=== PATIENT | female | born 1955 | race Caucasian/White ===

== ENCOUNTER 2019-04-21 14:17 | Inpatient (IN) | payer OTHER ==
[~2019-04-21] VITALS: Ht 167.6 cm; Wt 59.9 kg
[~2019-04-21 14:17] MED LIST: ALBU2.5V NPPB; ASPI81TA45 PO; CEFD300C37 PO; DOXY100T23 PO; FLUT1DIS3 INH; FURO40TA6 PO; LISI-170 PO; METO-93 PO; NICO-487 TD; POTA20TA14 PO; PRED10TA PO; TIOT18CA INH; TRAM50TA2 PO
[2019-04-21 15:41] LABS: BASOPHILS # (AUTO) 0.06 x10^3/uL (0-0.1); BASOPHILS % (AUTO) 1 % (0-1); EOSINOPHILS # (AUTO) 0.09 x10^3/uL (0-0.4); EOSINOPHILS % (AUTO) 1 % (1-7); LYMPHOCYTES # (AUTO) 1.52 x10^3/uL (1-3.4); LYMPHOCYTES % (AUTO) 22 % (22-44); MD NO; MEAN CORPUSCULAR HEMOGLOBIN 30.5 pg (27.0-34.8); MEAN CORPUSCULAR HGB CONC 33.1 g/dL (32.4-35.8); MEAN PLATELET VOLUME 6.6 fL (7.4-10.4); MONOCYTES % (AUTO) 10 % (2-9); NEUTROPHILS # (AUTO) 4.58 x10^3/uL (1.8-6.8); NEUTROPHILS % (AUTO) 66 % (42-75); PLATELET COUNT 396 x10^3/uL (130-400); RED BLOOD COUNT 4.47 x10^6/uL (3.82-5.3); RED CELL DISTRIBUTION WIDTH 15.7 % (9.6-15.2)
[2019-04-21 15:42] LABS: HCT (SEDRATE) 41.2 % (34.6-47.8)
[2019-04-21 15:46] LABS: ALBUMIN 3.3 g/dL (3.4-5.0); ANION GAP 10 mmol/L (5-15); CALCIUM 9.1 mg/dL (8.5-10.1); CHLORIDE 90 mmol/L (98-107)
--- NOTE | 2019-04-21 15:48 | NUR ---
from lobby to room at this time
[2019-04-21 15:55] LABS: ALANINE AMINOTRANSFERASE 20 U/L (12-78); ALKALINE PHOSPHATASE 61 U/L (45-117); BILIRUBIN,TOTAL 0.3 mg/dL (0.2-1.0); CREATININE 0.75 mg/dL (0.55-1.02); TOTAL PROTEIN 7.2 g/dL (6.4-8.2)
[2019-04-21] MEDS ORDERED: PIPERACILLIN/TAZO/PMX 3.375GM 50 ML IVPB ONE (16:30)
[2019-04-21] MEDS ORDERED: VANCOMYCIN 1,200 MG in SODIUM CHLORIDE 0.9% 250 ML IV ONE (16:30)
[2019-04-21] MEDS ORDERED: VANCOMYCIN PER PHARMACY MC ONE (16:30)
--- NOTE | 2019-04-21 17:12 | NUR ---
1605 pt to ed from home. infection in R great toe x3 weeks. no fevers/chills. LIANG ordered. ERMD at bedside for eval 1710 1st set Blood cultures drawn. plan for admit/iv abx. liang in progress. pt placed on o2 2lnc, wears o2 at night. 9/10 toe pain. call tyson in reach.
[2019-04-21] MEDS ORDERED: OXYcodone IR 5MG TABLET ONE (17:22)
[2019-04-21] MEDS ORDERED: morphine SULFATE 10 MG/ML, 1ML IVPush PRN (17:30)
[2019-04-21] MEDS ORDERED: ONDANSETRON 2MG/ML, 2ML IVPush PRN (17:30)
[2019-04-21] MEDS ORDERED: VANCOMYCIN PER PHARMACY MC PRN (17:30)
--- NOTE | 2019-04-21 17:32 | NUR ---
report to marcela rodriguez. oxy for pain. as
[2019-04-21] MEDS: OXYcodone IR 5MG TABLET PO PRN (17:39)
[2019-04-21] MEDS ORDERED: PHARMACOKINETIC MONITORING MC PRN (18:00)
[2019-04-21] MEDS ORDERED: PHARMACOKINETIC CONSULTATION MC ONE (18:00)
[2019-04-21] MEDS ORDERED: POTASSIUM CHLORIDE 40 MEQ in SODIUM CHLORIDE 0.9% 500 ML IV ONE (18:00)
[2019-04-21] MEDS: SODIUM CHLORIDE 0.9% 1,000 ML IV SCH (18:08)
[2019-04-21] MEDS: PIPERACILLIN/TAZO/PMX 3.375GM 50 ML IV SCH (18:08)
[2019-04-21] MEDS: NICOTINE 14MG/24 HR PATCH.TD24 TD SCH (18:09)
[2019-04-21 19:05] VITALS: BP 171/81
[2019-04-21] MEDS: VANCOMYCIN 1,100 MG in SODIUM CHLORIDE 0.9% 250 ML IV SCH (19:17)
[2019-04-21] MEDS ORDERED: ALBUTEROL SULFATE 2.5 MG/3 ML NPPB PRN (21:30)
[2019-04-21] MEDS ORDERED: ACETAMINOPHEN 325 MG TABLET PO PRN (22:00)
[2019-04-21] MEDS: LISINOPRIL 20 MG TABLET PO SCH (22:11)
[2019-04-22] MEDS ORDERED: OMNIPAQUE 350 MG/ML, 150 ML BOTTLE ONE (01:11)
[2019-04-22 01:22] VITALS: BP 152/86
[2019-04-22] MEDS: PIPERACILLIN/TAZO/PMX 3.375GM 50 ML IV SCH ×4 (01:54→19:50)
[2019-04-22 06:14] LABS: ANION GAP 6 mmol/L (5-15); CALCIUM 8.9 mg/dL (8.5-10.1); CHLORIDE 97 mmol/L (98-107)
[2019-04-22 06:15] LABS: CREATININE 0.46 mg/dL (0.55-1.02)
[2019-04-22 06:19] LABS: BASOPHILS # (AUTO) 0.02 x10^3/uL (0-0.1); BASOPHILS % (AUTO) 0 % (0-1); EOSINOPHILS # (AUTO) 0.08 x10^3/uL (0-0.4); EOSINOPHILS % (AUTO) 2 % (1-7); LYMPHOCYTES # (AUTO) 1.38 x10^3/uL (1-3.4); LYMPHOCYTES % (AUTO) 26 % (22-44); MD NO; MEAN CORPUSCULAR HEMOGLOBIN 30.4 pg (27.0-34.8); MEAN CORPUSCULAR HGB CONC 32.5 g/dL (32.4-35.8); MEAN CORPUSCULAR VOLUME 93.4 fL (80-100); MEAN PLATELET VOLUME 7.3 fL (7.4-10.4); MONOCYTES # (AUTO) 0.56 x10^3/uL (0.2-0.8); MONOCYTES % (AUTO) 10 % (2-9); NEUTROPHILS % (AUTO) 62 % (42-75); PLATELET COUNT 334 x10^3/uL (130-400); RED BLOOD COUNT 4.21 x10^6/uL (3.82-5.3); RED CELL DISTRIBUTION WIDTH 15.3 % (9.6-15.2)
[2019-04-22 07:42] VITALS: BP 142/85
[2019-04-22] MEDS: METOPROLOL SUCCINATE 50 MG TAB.ER.24H PO SCH (07:52)
[2019-04-22] MEDS: LISINOPRIL 20 MG TABLET PO SCH ×2 (07:52→19:51)
[2019-04-22] MEDS: VANCOMYCIN 1,100 MG in SODIUM CHLORIDE 0.9% 250 ML IV SCH (12:30)
[2019-04-22 12:53] VITALS: BP 128/66
[2019-04-22] MEDS ORDERED: LIDOCAINE 1%, 10ML ONE (15:29)
[2019-04-22] MEDS ORDERED: ATROPINE SYRINGE 0.1 MG/ML, 10ML ONE (15:44)
[2019-04-22] MEDS ORDERED: FENTANYL PF 100 MCG/2ML ONE (15:45)
[2019-04-22] MEDS ORDERED: MIDAZOLAM 1 MG/ML, 5ML ONE (15:45)
[2019-04-22] MEDS ORDERED: FLUMAZENIL 0.1 MG/1 ML, 5ML ONE (15:45)
[2019-04-22] MEDS ORDERED: PROTAMINE SULFATE 10 MG/ML, 25ML ONE (15:45)
[2019-04-22] MEDS ORDERED: NALOXONE 1 MG/ML, 2ML ONE (15:45)
[2019-04-22] MEDS ORDERED: NITROGLYCERIN 5 MG/ML, 10ML ONE (15:45)
[2019-04-22] MEDS ORDERED: HEPARIN 1,000 UNITS/ML, 10ML ONE (15:45)
[2019-04-22] MEDS ORDERED: DIPHENHYDRAMINE 50 MG/ML, 1ML ONE (17:02)
[2019-04-22 18:27] VITALS: BP 174/95
[2019-04-22] MEDS ORDERED: CLOPIDOGREL 75 MG TABLET PO ONE (19:00)
[2019-04-22] MEDS: NICOTINE 14MG/24 HR PATCH.TD24 TD SCH (19:51)
[2019-04-22] MEDS: SODIUM CHLORIDE 0.9% 1,000 ML IV SCH (19:51)
[2019-04-22] MEDS: POTASSIUM CHLORIDE 20 MEQ TAB.ER.PRT PO SCH (19:52)
[2019-04-23 00:54] VITALS: BP 117/78
[2019-04-23] MEDS: PIPERACILLIN/TAZO/PMX 3.375GM 50 ML IV SCH ×4 (01:48→20:20)
[2019-04-23] MEDS: VANCOMYCIN 1,100 MG in SODIUM CHLORIDE 0.9% 250 ML IV SCH (06:15)
[2019-04-23 07:12] VITALS: BP 155/74
[2019-04-23] MEDS: POTASSIUM CHLORIDE 20 MEQ TAB.ER.PRT PO SCH (08:12)
[2019-04-23] MEDS: CLOPIDOGREL 75 MG TABLET PO SCH (08:12)
[2019-04-23] MEDS: METOPROLOL SUCCINATE 50 MG TAB.ER.24H PO SCH (08:13)
[2019-04-23] MEDS: LISINOPRIL 20 MG TABLET PO SCH ×2 (08:13→20:20)
[2019-04-23 14:12] VITALS: BP 151/79
[2019-04-23] MEDS: SODIUM CHLORIDE 0.9% 1,000 ML IV SCH (14:27)
[2019-04-23 20:10] VITALS: BP 153/78
[2019-04-23] MEDS: NICOTINE 14MG/24 HR PATCH.TD24 TD SCH (20:20)
[2019-04-23] MEDS: DAPTOMYCIN 350 MG in SODIUM CHLORIDE 0.9% 100 ML IVPB SCH (22:03)
[2019-04-24] MEDS: PIPERACILLIN/TAZO/PMX 3.375GM 50 ML IV SCH ×2 (01:31→08:56)
[2019-04-24 02:57] VITALS: BP 152/83
[2019-04-24 05:23] LABS: BASOPHILS # (AUTO) 0.04 x10^3/uL (0-0.1); BASOPHILS % (AUTO) 1 % (0-1); EOSINOPHILS # (AUTO) 0.12 x10^3/uL (0-0.4); EOSINOPHILS % (AUTO) 2 % (1-7); LYMPHOCYTES % (AUTO) 33 % (22-44); MD NO; MEAN CORPUSCULAR HEMOGLOBIN 30.3 pg (27.0-34.8); MEAN CORPUSCULAR VOLUME 94.8 fL (80-100); MEAN PLATELET VOLUME 6.9 fL (7.4-10.4); MONOCYTES # (AUTO) 0.64 x10^3/uL (0.2-0.8); MONOCYTES % (AUTO) 10 % (2-9); NEUTROPHILS # (AUTO) 3.32 x10^3/uL (1.8-6.8); NEUTROPHILS % (AUTO) 54 % (42-75); PLATELET COUNT 285 x10^3/uL (130-400); RED BLOOD COUNT 3.76 x10^6/uL (3.82-5.3); RED CELL DISTRIBUTION WIDTH 15.6 % (9.6-15.2)
[2019-04-24 05:35] LABS: ANION GAP 3 mmol/L (5-15); CALCIUM 8.4 mg/dL (8.5-10.1); CHLORIDE 107 mmol/L (98-107); CREATININE 0.48 mg/dL (0.55-1.02)
[2019-04-24 05:38] LABS: CREATINE KINASE, TOTAL 66 U/L (26-192)
[2019-04-24] MEDS: METOPROLOL SUCCINATE 50 MG TAB.ER.24H PO SCH (08:56)
[2019-04-24] MEDS: CLOPIDOGREL 75 MG TABLET PO SCH (08:56)
[2019-04-24] MEDS: POTASSIUM CHLORIDE 20 MEQ TAB.ER.PRT PO SCH (08:56)
[2019-04-24] MEDS: LISINOPRIL 20 MG TABLET PO SCH ×2 (08:57→20:14)
[2019-04-24] MEDS ORDERED: GADOTERATE 7.5 MMOL/15 ML SYR ONE (11:15)
[2019-04-24] MEDS: LEVOFLOXACIN 750 MG TABLET PO SCH (12:17)
[2019-04-24 16:03] VITALS: BP 173/85
[2019-04-24] MEDS ORDERED: PROPOFOL 50 ML ONE (17:32)
[2019-04-24] MEDS ORDERED: FENTANYL PF 100 MCG/2ML ONE ×2 (17:55→19:00)
[2019-04-24] MEDS ORDERED: FENTANYL PF 100 MCG/2ML IV PRN (19:00)
[2019-04-24] MEDS ORDERED: EPHEDRINE 50 MG/ML, 1ML IM PRN (19:00)
[2019-04-24] MEDS ORDERED: ALBUTEROL/IPRATROPIUM 2.5MG/0.5MG, 3 ML NPPB PRN (19:00)
[2019-04-24] MEDS ORDERED: ONDANSETRON 2MG/ML, 2ML IV PRN (19:00)
[2019-04-24] MEDS ORDERED: MIDAZOLAM 1 MG/ML, 2ML IV PRN (19:00)
[2019-04-24] MEDS ORDERED: EPHEDRINE 50 MG/ML, 1ML IVPush PRN (19:00)
[2019-04-24] MEDS ORDERED: OXYcodone 5 MG/5 ML ORAL.SOL UDC PO PRN (19:00)
[2019-04-24] MEDS ORDERED: ONDANSETRON ODT 8 MG PO PRN (19:00)
[2019-04-24] MEDS ORDERED: MORPHINE SULFATE 4 MG/ML, 1ML IVPush PRN (19:00)
[2019-04-24] MEDS ORDERED: DIPHENHYDRAMINE 50 MG/ML, 1ML IVPush PRN (19:00)
[2019-04-24] MEDS ORDERED: PROMETHAZINE 25 MG/ML, 1ML IV PRN (19:00)
[2019-04-24] MEDS ORDERED: DIAZEPAM 5 MG/ML, 2ML IVPush PRN (19:00)
[2019-04-24] MEDS ORDERED: OXYcodone 5 MG/5 ML ORAL.SOL UDC ONE ×2 (19:01→19:05)
[2019-04-24] MEDS ORDERED: hydrALAzine 20 MG/ML, 1ML ONE (19:12)
[2019-04-24] MEDS ORDERED: hydrALAzine 20 MG/ML, 1ML IV PRN (19:30)
[2019-04-24 19:57] VITALS: BP 158/85
[2019-04-24] MEDS: NICOTINE 14MG/24 HR PATCH.TD24 TD SCH (20:13)
[2019-04-24] MEDS: OXYcodone IR 5MG TABLET PO PRN ×2 (20:35→22:47)
[2019-04-24] MEDS: DAPTOMYCIN 350 MG in SODIUM CHLORIDE 0.9% 100 ML IVPB SCH (22:41)
[2019-04-25 00:33] VITALS: BP 152/82
[2019-04-25] MEDS: SODIUM CHLORIDE 0.9% 1,000 ML IV SCH (02:59)
[2019-04-25 05:28] LABS: BASOPHILS # (AUTO) 0.06 x10^3/uL (0-0.1); BASOPHILS % (AUTO) 1 % (0-1); EOSINOPHILS # (AUTO) 0.11 x10^3/uL (0-0.4); EOSINOPHILS % (AUTO) 2 % (1-7); LYMPHOCYTES # (AUTO) 2.12 x10^3/uL (1-3.4); LYMPHOCYTES % (AUTO) 29 % (22-44); MD NO; MEAN CORPUSCULAR HEMOGLOBIN 30.9 pg (27.0-34.8); MEAN CORPUSCULAR HGB CONC 33.1 g/dL (32.4-35.8); MEAN CORPUSCULAR VOLUME 93.3 fL (80-100); MEAN PLATELET VOLUME 6.9 fL (7.4-10.4); MONOCYTES # (AUTO) 0.56 x10^3/uL (0.2-0.8); MONOCYTES % (AUTO) 8 % (2-9); NEUTROPHILS # (AUTO) 4.36 x10^3/uL (1.8-6.8); NEUTROPHILS % (AUTO) 61 % (42-75); PLATELET COUNT 295 x10^3/uL (130-400); RED BLOOD COUNT 3.83 x10^6/uL (3.82-5.3); RED CELL DISTRIBUTION WIDTH 15.9 % (9.6-15.2)
[2019-04-25 05:34] LABS: ANION GAP 6 mmol/L (5-15); CALCIUM 8.6 mg/dL (8.5-10.1); CHLORIDE 105 mmol/L (98-107)
[2019-04-25] MEDS: ENOXAPARIN 40 MG/0.4 ML SQ SCH (09:57)
[2019-04-25] MEDS: LISINOPRIL 20 MG TABLET PO SCH ×2 (09:57→21:49)
[2019-04-25] MEDS: METOPROLOL SUCCINATE 50 MG TAB.ER.24H PO SCH (09:57)
[2019-04-25] MEDS: POTASSIUM CHLORIDE 20 MEQ TAB.ER.PRT PO SCH (09:57)
[2019-04-25] MEDS: CLOPIDOGREL 75 MG TABLET PO SCH (09:57)
[2019-04-25 10:54] VITALS: BP 158/85
[2019-04-25] MEDS: LEVOFLOXACIN 750 MG TABLET PO SCH (12:37)
[2019-04-25] MEDS ORDERED: POLYETHYLENE GLYCOL 17 GM PACKET PO PRN (13:00)
[2019-04-25] MEDS ORDERED: BISACODYL 10 MG SUPP PR PRN (13:00)
[2019-04-25 14:12] VITALS: BP 142/76
[2019-04-25 18:52] VITALS: BP 159/83
[2019-04-25] MEDS: DOCUSATE 100 MG CAPSULE PO SCH (21:49)
[2019-04-25] MEDS: NICOTINE 14MG/24 HR PATCH.TD24 TD SCH (21:49)
[2019-04-25] MEDS: DAPTOMYCIN 350 MG in SODIUM CHLORIDE 0.9% 100 ML IVPB SCH (21:53)
[2019-04-26 03:21] VITALS: BP 147/80
[2019-04-26 07:00] VITALS: BP 155/84
[2019-04-26] MEDS: POTASSIUM CHLORIDE 20 MEQ TAB.ER.PRT PO SCH (08:40)
[2019-04-26] MEDS: METOPROLOL SUCCINATE 50 MG TAB.ER.24H PO SCH (08:40)
[2019-04-26] MEDS: DOCUSATE 100 MG CAPSULE PO SCH ×2 (08:40→20:17)
[2019-04-26] MEDS: CLOPIDOGREL 75 MG TABLET PO SCH (08:40)
[2019-04-26] MEDS: LISINOPRIL 20 MG TABLET PO SCH ×2 (08:40→20:02)
[2019-04-26] MEDS: ENOXAPARIN 40 MG/0.4 ML SQ SCH (08:41)
[2019-04-26] MEDS: AMLODIPINE 5 MG TABLET PO SCH (08:41)
[2019-04-26] MEDS: LEVOFLOXACIN 750 MG TABLET PO SCH (12:27)
[2019-04-26 13:05] VITALS: BP 145/72
[2019-04-26 19:52] VITALS: BP 149/85
[2019-04-26] MEDS: NICOTINE 14MG/24 HR PATCH.TD24 TD SCH (20:02)
[2019-04-26] MEDS: DAPTOMYCIN 350 MG in SODIUM CHLORIDE 0.9% 100 ML IVPB SCH (21:57)
[2019-04-27 02:27] VITALS: BP 153/71
[2019-04-27 06:39] LABS: BASOPHILS # (AUTO) 0.04 x10^3/uL (0-0.1); BASOPHILS % (AUTO) 1 % (0-1); EOSINOPHILS # (AUTO) 0.09 x10^3/uL (0-0.4); EOSINOPHILS % (AUTO) 1 % (1-7); LYMPHOCYTES # (AUTO) 2.14 x10^3/uL (1-3.4); LYMPHOCYTES % (AUTO) 35 % (22-44); MD NO; MEAN CORPUSCULAR HEMOGLOBIN 30.5 pg (27.0-34.8); MEAN CORPUSCULAR HGB CONC 32.4 g/dL (32.4-35.8); MEAN CORPUSCULAR VOLUME 94.4 fL (80-100); MEAN PLATELET VOLUME 7.5 fL (7.4-10.4); MONOCYTES # (AUTO) 0.51 x10^3/uL (0.2-0.8); MONOCYTES % (AUTO) 8 % (2-9); NEUTROPHILS # (AUTO) 3.29 x10^3/uL (1.8-6.8); NEUTROPHILS % (AUTO) 54 % (42-75); PLATELET COUNT 325 x10^3/uL (130-400); RED BLOOD COUNT 3.87 x10^6/uL (3.82-5.3); RED CELL DISTRIBUTION WIDTH 15.5 % (9.6-15.2)
[2019-04-27 06:46] LABS: ALBUMIN 2.8 g/dL (3.4-5.0); ANION GAP 5 mmol/L (5-15); CALCIUM 8.7 mg/dL (8.5-10.1); CHLORIDE 105 mmol/L (98-107)
[2019-04-27 06:55] LABS: ALANINE AMINOTRANSFERASE 17 U/L (12-78); ALKALINE PHOSPHATASE 45 U/L (45-117); BILIRUBIN,TOTAL 0.3 mg/dL (0.2-1.0); CREATINE KINASE, TOTAL 55 U/L (26-192); CREATININE 0.42 mg/dL (0.55-1.02); TOTAL PROTEIN 6.4 g/dL (6.4-8.2)
[2019-04-27 07:36] LABS: HCT (SEDRATE) 36.5 % (34.6-47.8)
[2019-04-27 08:06] VITALS: BP 150/82
[2019-04-27] MEDS: ENOXAPARIN 40 MG/0.4 ML SQ SCH (08:20)
[2019-04-27] MEDS: CLOPIDOGREL 75 MG TABLET PO SCH (08:20)
[2019-04-27] MEDS: LISINOPRIL 20 MG TABLET PO SCH ×2 (08:20→20:47)
[2019-04-27] MEDS: DOCUSATE 100 MG CAPSULE PO SCH ×2 (08:20→20:49)
[2019-04-27] MEDS: POTASSIUM CHLORIDE 20 MEQ TAB.ER.PRT PO SCH (08:20)
[2019-04-27] MEDS: METOPROLOL SUCCINATE 50 MG TAB.ER.24H PO SCH (08:20)
[2019-04-27] MEDS: AMLODIPINE 5 MG TABLET PO SCH (08:20)
[2019-04-27] MEDS: LEVOFLOXACIN 750 MG TABLET PO SCH (11:50)
[2019-04-27 15:29] VITALS: BP 145/87
[2019-04-27 19:39] VITALS: BP 152/84
[2019-04-27] MEDS: NICOTINE 14MG/24 HR PATCH.TD24 TD SCH (20:48)
[2019-04-27] MEDS: DAPTOMYCIN 350 MG in SODIUM CHLORIDE 0.9% 100 ML IVPB SCH (23:20)
[2019-04-28 02:30] VITALS: BP 152/84
[2019-04-28 04:39] VITALS: BP 146/73
[2019-04-28] MEDS: CLOPIDOGREL 75 MG TABLET PO SCH (08:15)
[2019-04-28] MEDS: LISINOPRIL 20 MG TABLET PO SCH ×2 (08:15→20:36)
[2019-04-28] MEDS: DOCUSATE 100 MG CAPSULE PO SCH ×2 (08:15→20:36)
[2019-04-28] MEDS: AMLODIPINE 5 MG TABLET PO SCH (08:15)
[2019-04-28] MEDS: METOPROLOL SUCCINATE 50 MG TAB.ER.24H PO SCH (08:15)
[2019-04-28] MEDS: POTASSIUM CHLORIDE 20 MEQ TAB.ER.PRT PO SCH (08:15)
[2019-04-28] MEDS: ENOXAPARIN 40 MG/0.4 ML SQ SCH (08:16)
[2019-04-28 08:32] VITALS: BP 169/91
[2019-04-28] MEDS: LEVOFLOXACIN 750 MG TABLET PO SCH (12:29)
[2019-04-28 14:50] VITALS: BP 124/76
[2019-04-28 20:13] VITALS: BP 149/78
[2019-04-28] MEDS: NICOTINE 14MG/24 HR PATCH.TD24 TD SCH (20:37)
[2019-04-28] MEDS: DAPTOMYCIN 350 MG in SODIUM CHLORIDE 0.9% 100 ML IVPB SCH (22:12)
[2019-04-29 01:59] VITALS: BP 155/78
[2019-04-29 04:19] VITALS: BP 143/72
[2019-04-29 08:17] VITALS: BP 168/90
[2019-04-29] MEDS: ENOXAPARIN 40 MG/0.4 ML SQ SCH (08:45)
[2019-04-29] MEDS: METOPROLOL SUCCINATE 50 MG TAB.ER.24H PO SCH (08:46)
[2019-04-29] MEDS: DOCUSATE 100 MG CAPSULE PO SCH ×2 (08:46→20:28)
[2019-04-29] MEDS: AMLODIPINE 5 MG TABLET PO SCH (08:46)
[2019-04-29] MEDS: CLOPIDOGREL 75 MG TABLET PO SCH (08:47)
[2019-04-29] MEDS: LISINOPRIL 20 MG TABLET PO SCH ×2 (08:47→20:28)
[2019-04-29] MEDS: POTASSIUM CHLORIDE 20 MEQ TAB.ER.PRT PO SCH (08:47)
[2019-04-29] MEDS: LEVOFLOXACIN 750 MG TABLET PO SCH (13:23)
[2019-04-29 15:23] VITALS: BP 143/77
[2019-04-29 18:57] VITALS: BP 158/84
[2019-04-29] MEDS: NICOTINE 14MG/24 HR PATCH.TD24 TD SCH (20:29)
[2019-04-29] MEDS: DAPTOMYCIN 350 MG in SODIUM CHLORIDE 0.9% 100 ML IVPB SCH (21:56)
[2019-04-30 01:20] VITALS: BP 159/71
[2019-04-30 07:38] VITALS: BP 152/73
[2019-04-30] MEDS: ENOXAPARIN 40 MG/0.4 ML SQ SCH (08:30)
[2019-04-30] MEDS: DOCUSATE 100 MG CAPSULE PO SCH (09:00)
[2019-04-30] MEDS ORDERED: CLOP75TA PO (09:23)
[2019-04-30] MEDS ORDERED: ACET325T26 PO (09:23)
[2019-04-30] MEDS ORDERED: AMLO-150 PO (09:23)
[2019-04-30] MEDS ORDERED: DOCU100C33 PO (09:23)
[2019-04-30] MEDS ORDERED: LEVO750T26 PO (09:23)
[2019-04-30] MEDS ORDERED: NICO-486 TD (09:23)
[2019-04-30] MEDS ORDERED: DAPT500V6 IV (09:23)
[2019-04-30] MEDS: METOPROLOL SUCCINATE 50 MG TAB.ER.24H PO SCH (09:34)
[2019-04-30] MEDS: LISINOPRIL 20 MG TABLET PO SCH (09:34)
[2019-04-30] MEDS: CLOPIDOGREL 75 MG TABLET PO SCH (09:34)
[2019-04-30] MEDS: AMLODIPINE 5 MG TABLET PO SCH (09:34)
[2019-04-30] MEDS: POTASSIUM CHLORIDE 20 MEQ TAB.ER.PRT PO SCH (09:34)
== END 2019-04-30 11:10 | disposition home or self-care (01) | DRG 271 ==
LOC: ED 16:53 → EDIP 17:02 → 3N 17:29
PROVIDERS: ADMIT Hospitalist; ATTEND Hospitalist
PROC: 04CM3ZZ Extirpation of Matter from Right Popliteal Artery, Percutaneous Approach (ICD-10-PCS; 2019-04-22)
PROC: 047M3Z1 Dilation of Right Popliteal Artery using Drug-Coated Balloon, Percutaneous Approach (ICD-10-PCS; 2019-04-22)
PROC: B44GZZZ Ultrasonography of Left Lower Extremity Arteries (ICD-10-PCS; 2019-04-22)
PROC: B41D1ZZ Fluoroscopy of Aorta and Bilateral Lower Extremity Arteries using Low Osmolar Contrast (ICD-10-PCS; 2019-04-22)
PROC: 0Y6P0Z1 Detachment at Right 1st Toe, High, Open Approach (ICD-10-PCS; 2019-04-24)
PROC: 0Y6R0Z3 Detachment at Right 2nd Toe, Low, Open Approach (ICD-10-PCS; 2019-04-24)
PROC: 02HV33Z Insertion of Infusion Device into Superior Vena Cava, Percutaneous Approach (ICD-10-PCS; principal; 2019-04-29)
PROC: B5181ZA Fluoroscopy of Superior Vena Cava using Low Osmolar Contrast, Guidance (ICD-10-PCS; 2019-04-29)
PROC: B54NZZA Ultrasonography of Left Upper Extremity Veins, Guidance (ICD-10-PCS; 2019-04-29)
DX: E11.52 Type 2 diabetes mellitus with diabetic peripheral angiopathy with gangrene (principal); M86.171 Other acute osteomyelitis, right ankle and foot; E87.1 Hypo-osmolality and hyponatremia; L03.115 Cellulitis of right lower limb; L97.419 Non-pressure chronic ulcer of right heel and midfoot with unspecified severity; I96 Gangrene, not elsewhere classified; E11.69 Type 2 diabetes mellitus with other specified complication; E11.621 Type 2 diabetes mellitus with foot ulcer; E87.6 Hypokalemia; F17.210 Nicotine dependence, cigarettes, uncomplicated; I11.0 Hypertensive heart disease with heart failure; I50.9 Heart failure, unspecified; I70.201 Unspecified atherosclerosis of native arteries of extremities, right leg; I99.8 Other disorder of circulatory system; J44.9 Chronic obstructive pulmonary disease, unspecified; L97.519 Non-pressure chronic ulcer of other part of right foot with unspecified severity; M79.89 Other specified soft tissue disorders; Z82.3 Family history of stroke; Z86.79 Personal history of other diseases of the circulatory system
CPT/HCPCS: 36415; 73630; 84145; 99285; J3490; S0020; 36573; 37225; 75635; 75710; 80048; 80053; 82550; 83036; 83605; 85025; 85651; 86140; 87040; 87070; 87077; 87186; 87205; 88305; 88311; 93005; 93922; 93925; 99156; 99157; G0378; J0171; J0461; J0878; J1644; J1650; J2250; J2543; J2704; J2720; J3010; J3370; J3480; Q9967; A9575; C1714; C1751; C1760; C1769; C1884; C1894; C2623; J0360; J1200; J2310; J7030; J7040; J7050